=== PATIENT | male | born 1940 | race African-American/Black ===

== ENCOUNTER 2018-04-11 19:24 | Emergency (ER) | payer MEDICARE, OTHER ==
[~2018-04-11] VITALS: Ht 165.1 cm; Wt 81.6 kg
--- NOTE | 2018-04-11 19:50 | NUR ---
MD AT BEDSIDE FOR EVALUATION
--- NOTE | 2018-04-11 19:50 | NUR ---
PT NENA FROM [facility] COMPLAINING OF DECREASED URINARY OUTPUT. PT STATES LOVELACE CATHETER WAS PLACED EARLIER TODAY, ABOUT 200CC OUTPUT YELLOW, SLIGHTLY CLOUDY. PT AAOX1. RESPIRATIONS EVEN AND UNLABORED. NO ACUTE DISTRESS NOTED. WILL CONTINUE TO MONITOR
[2018-04-11] MEDS ORDERED: IV NS 0.9% 1,000 ML BAG IV ONE (20:00)
[2018-04-11 20:23] LABS: APPEARANCE,URINE Cloudy (CLEAR); BILIRUBIN,URINE Negative (NEGATIVE); BLOOD, URINE Moderate Ery/uL (NEGATIVE); COLOR,URINE Yellow (YELLOW); KETONES,URINE Negative (NEGATIVE); LEUKOCYTE ESTERASE ,URINE Large (NEGATIVE); NITRITE, URINE Positive (NEGATIVE); PROTEIN,URINE >=300 mg/dl (NEGATIVE); UGLUCOSE Negative (NEGATIVE); UROBILINOGEN,URINE 0.2 EU/dL (0.2)
--- NOTE | 2018-04-11 20:30 | NUR ---
OPERATION SUPERVISOR AT BEDSIDE FOR BLOOD DRAW
[2018-04-11 20:32] LABS: BACTERIA,URINE Many /HPF (None Seen); WBC,URINE TOO NUMEROUS TO COUN /HPF (0-3)
[2018-04-11 20:35] LABS: BASOPHILS % (AUTO) 0.5 % (0.0-2.0); EOSINOPHILS % (AUTO) 8.8 % (0.0-6.0); HEMATOCRIT 38 % (39-51); HEMOGLOBIN 12.2 g/dL (13.5-17.5); LYMPHOCYTES # (AUTO) 1.6 /CMM (0.8-4.8); MEAN CORPUSCULAR HGB CONC 32 g/dl (31.0-36.0); MEAN CORPUSCULAR VOLUME 101 fL (80-96); MONOCYTES % (AUTO) 16.3 % (2.0-12.0); NEUTROPHILS # (AUTO) 2.9 /CMM (1.8-8.9); NEUTROPHILS % (AUTO) 47.4 % (43.0-81.0); PLATELET COUNT (AUTO) 240 /CMM (150-450); RED BLOOD CELL COUNT(AUTO) 3.74 MIL/uL (4.5-6.0)
[2018-04-11 20:35] LABS: SQUAMOUS EPITHELIAL CELL,UR Rare /HPF (None Seen)
[2018-04-11 20:45] LABS: CALCIUM, SERUM 9.1 mg/dL (8.5-10.1); CARBON DIOXIDE 25 mmol/L (21-32); CHLORIDE 105 mmol/L (98-107); CREATININE 1.5 mg/dL (0.6-1.3); GLUCOSE 158 mg/dL (74-106); SODIUM SERUM 141 mmol/L (136-145); UREA NITROGEN, BLOOD 44 mg/dL (7-18)
[2018-04-11] MEDS ORDERED: CEFTRIAXONE 1GM BAG (ER ONLY) 50 ML IV ONE (21:22)
[2018-04-11] MEDS ORDERED: CEFTRIAXONE 1GM BAG (ER ONLY) 1 GM/50 ML PIGGYBACK IV ONE (21:30)
--- NOTE | 2018-04-11 23:44 | NUR ---
GAVE REPORT TO LILI FROM [facility] AND TO KAYLEE Suarez FOR JENNI
[2018-04-11 23:46] VITALS: BP 144/75
== END 2018-04-11 23:47 | disposition home or self-care (01) ==
LOC: ER 19:26
DX: N39.0 Urinary tract infection, site not specified (principal); E11.9 Type 2 diabetes mellitus without complications; I10 Essential (primary) hypertension; I42.9 Cardiomyopathy, unspecified; I25.10 Atherosclerotic heart disease of native coronary artery without angina pectoris; R09.02 Hypoxemia; K21.9 Gastro-esophageal reflux disease without esophagitis; M62.81 Muscle weakness (generalized); E78.00 Pure hypercholesterolemia, unspecified; Z89.612 Acquired absence of left leg above knee; Z89.611 Acquired absence of right leg above knee; Z88.0 Allergy status to penicillin; Z88.1 Allergy status to other antibiotic agents
CPT/HCPCS: 36415; 80048-TC; 81000-TC; 85025-TC; 87086-TC; 87186-TC; J0696; J7030

== ENCOUNTER 2020-08-12 23:07 | Inpatient (IN) | payer MEDICARE, OTHER ==
[~2020-08-12] VITALS: Ht 127 cm; Wt 76.2 kg
--- NOTE | 2020-08-12 23:24 | NUR ---
PT WAS BIB [facility] FOR EVALUATION OF ABNORMAL LAB INCLUDING HIGH WBS, LOW K+, AND HIGH BUN AND CR. PT ALERT AND RESPONSIVE , WSA PLACED IN BED 3 ER , ON MONITOR . NOTED W/ BILAT AKA AND DISTENDED ABDOMEN. PT DENIED ANY PAIN OR DISCOMFORT. DOES NOT REMEMBER WHEN THE LAST BM WAS, WILL CONT TO MONITOR AND WILL F/U WITH MD'S ORDERS
--- NOTE | 2020-08-12 23:50 | NUR ---
URINE COLLECTED AND SENT TO LAB
[2020-08-12 23:56] LABS: BILIRUBIN,URINE SMALL (NEGATIVE); COLOR,URINE YELLOW (YELLOW); LEUKOCYTE ESTERASE ,URINE Large (NEGATIVE); NITRITE, URINE Negative (NEGATIVE); PROTEIN,URINE 100 mg/dl (NEGATIVE); UGLUCOSE Negative (NEGATIVE); UROBILINOGEN,URINE 0.2 EU/dL (0.2)
--- NOTE | 2020-08-12 23:56 | NUR ---
PT WAS TAKEN TO CT
[2020-08-13 00:06] LABS: BASOPHILS % (AUTO) 0.1 % (0.0-2.0); EOSINOPHILS % (AUTO) 0.4 % (0.0-6.0); HEMATOCRIT 36 % (39-51); HEMOGLOBIN 11.5 g/dL (13.5-17.5); LYMPHOCYTES # (AUTO) 1.2 /CMM (0.8-4.8); LYMPHOCYTES % (AUTO) 5.2 % (20.0-44.0); MEAN CORPUSCULAR HGB CONC 32 g/dl (31.0-36.0); MEAN CORPUSCULAR VOLUME 103 fL (80-96); MONOCYTES # (AUTO) 1.1 /CMM (0.1-1.30); MONOCYTES % (AUTO) 4.8 % (2.0-12.0); NEUTROPHILS # (AUTO) 20.5 /CMM (1.8-8.9); NEUTROPHILS % (AUTO) 89.5 % (43.0-81.0); PLATELET COUNT (AUTO) 461 /CMM (150-450); RED BLOOD CELL COUNT(AUTO) 3.51 MIL/uL (4.5-6.0); WHITE BLOOD COUNT (AUTO) 22.9 K/uL (4.3-11.0)
[2020-08-13 00:07] LABS: CARBON DIOXIDE 20 mmol/L (21-32); CHLORIDE 109 mmol/L (98-107); CREATININE 2.9 mg/dL (0.6-1.3); GLUCOSE 160 mg/dL (74-106); SODIUM SERUM 143 mmol/L (136-145); UREA NITROGEN, BLOOD 62 mg/dL (7-18)
--- NOTE | 2020-08-13 00:07 | NUR ---
BACK FROM CT
[2020-08-13 00:21] LABS: ALANINE AMINOTRANSFERASE 9 U/L (12-78); ALBUMIN 2.3 g/dL (3.4-5.0); ALKALINE PHOSPHATASE 86 U/L (46-116); ASPARTATE AMINOTRANSFERASE 15 U/L (15-37); B-TYPE NATRIURETIC PEPTIDE 4977 PG/ML (0-125); BILIRUBIN,DIRECT 0.2 mg/dL (0.0-0.2); BILIRUBIN,TOTAL 0.8 mg/dL (0.2-1.0); TOTAL PROTEIN, SERUM 7.9 g/dL (6.4-8.2)
[2020-08-13 00:30] LABS: CALCIUM, SERUM 8.6 mg/dL (8.5-10.1)
[2020-08-13 00:33] LABS: BACTERIA,URINE Many /HPF (None Seen); SQUAMOUS EPITHELIAL CELL,UR Few /HPF (None Seen); WBC,URINE 81-100 /HPF (0-3)
[2020-08-13] MEDS ORDERED: CRAN3875 PO (00:42)
[2020-08-13] MEDS ORDERED: ASCO500C18 PO (00:42)
[2020-08-13] MEDS ORDERED: CLON0.1T PO (00:42)
[2020-08-13] MEDS ORDERED: ATOR40TA PO (00:42)
[2020-08-13] MEDS ORDERED: MULT-447 PO (00:42)
[2020-08-13] MEDS ORDERED: POLY500P23 PO (00:42)
[2020-08-13] MEDS ORDERED: CHOL100053 PO (00:42)
[2020-08-13] MEDS ORDERED: CLOP75TA15 PO (00:42)
[2020-08-13] MEDS ORDERED: CRAN425C6 PO (00:42)
[2020-08-13] MEDS ORDERED: FAMO20TA8 PO (00:42)
--- NOTE | 2020-08-13 00:51 | NUR ---
CALL FROM LAB. RAPID COVID NEGATIVE.
--- NOTE | 2020-08-13 01:44 | NUR ---
CALLED HOUSE SUP FOR TELE BED
[2020-08-13] MEDS ORDERED: VANCOMYCIN 1 GM VIAL ONE (01:45)
--- NOTE | 2020-08-13 01:55 | NUR ---
TELE 310-2
[2020-08-13] MEDS ORDERED: MAG HYDROX/AL HYDROX/SIMETH 30 ML UDC PO PRN (02:00)
[2020-08-13] MEDS ORDERED: HYDROCODONE/APAP 5/325MG TABLET PO PRN (02:00)
[2020-08-13] MEDS ORDERED: Z GUARD REMEDY 2 OZ OINT TP PRN (02:00)
[2020-08-13] MEDS ORDERED: IV NS 0.9% 1,000 ML BAG IV ONE ×2 (02:00)
[2020-08-13] MEDS ORDERED: VANCOMYCIN 1 GM in IV D5W 250 ML IV ONE (02:00)
[2020-08-13] MEDS ORDERED: LEVOFLOXACIN 750 MG /D5W 150ML 150 ML IV ONE (02:00)
[2020-08-13] MEDS ORDERED: ACETAMINOPHEN 325 MG TABLET PO PRN ×2 (02:00→09:30)
[2020-08-13] MEDS ORDERED: ZOLPIDEM TARTRATE 5 MG TABLET PO PRN (02:00)
[2020-08-13] MEDS ORDERED: MAGNESIUM HYDROXIDE 30 ML UDC PO PRN ×2 (02:00→09:30)
[2020-08-13] MEDS ORDERED: ONDANSETRON HCL/PF 4 MG/2 ML VIAL IVP PRN (02:00)
--- NOTE | 2020-08-13 03:05 | NUR ---
report recieved from moises vogel pt to be brought up to rm 310-2 telemetry dx of sepsis and yanique.
--- NOTE | 2020-08-13 03:30 | NUR ---
ADMISSION NOTE PATIENT FROM [facility] ADMITTED TO [facility] FROM ER WITH CHIEF COMPLAINT OF ABNORMAL LABS WBC 24.2, K 2.9, BUN 2.59 AND CR 1.65 . ADMITTED UNDER [facility]ANGUAGE [facility] FOR SEPSIS AND 2ND DX OF MARCELO. PT IS A/OX2 VS WNL. PATIENT PLACED ON LISA AIR MATTRESS. SKIN IS INTACT BUT SCAR TISSUE NOTED TO BE PRESENT ON SACRUM AND TESTICLES. PATIENT HAS BAKA. MEPILEX APPLIED TO SACRAL AREA PERINEAL CARE PERFORMED PATIENT HAD LARGE BM. PT HAS RAC #18 AND LEFT HAND #24 BOTH SITES FLUSEHD AND WORKING. NEW ORDERS RECIEVED. ADMISSION ASSESSMENT PERFORMED WITH PATIENT AND PRIOR RECORD FROM [facility].
--- NOTE | 2020-08-13 03:33 | NUR ---
PT WAS TRANSFERRED TO [facility] UNDER ACLS, RPORT GIVEN TO RODRIGO
[2020-08-13 04:00] VITALS: BP 130/73
[2020-08-13] MEDS: IV NS 0.9% 1,000 ML IV PRN ×2 (04:06→15:33)
[2020-08-13] MEDS: POTASSIUM CL. PREMIX PERIPHER. 50 ML IV SCH ×2 (04:09→05:00)
--- NOTE | 2020-08-13 05:00 | NUR ---
DISCUSSED CODE STATUS WITH PATIENT PATIENT WISHES TO BE FULL CODE. INFORMED PATIENT THAT THERE WAS A POLST FROM THE FACILITY THAT WAS DNR. PATIENT STATES, "NO I WANT ALL THE HELP I CAN GET. YOU CAN INTERVENE AND DO WHAT NEEDS TO BE DONE TO SAVE MY LIFE. "
[2020-08-13] MEDS ORDERED: INSU100V27 SQ (05:41)
--- NOTE | 2020-08-13 06:04 | NUR ---
PATIENT HAS HX OF DM; MED REC DID NOT INCLUDE INSULIN. GENE QUENCHING CAR OPERATOR; CONTACTED INFORMED NEW ORDERS FOR ACHS ACCUCHECKS ON LOW DOSE SLIDING SCALE RECIEVED. DIET ORDER CHANGED TO STANDARD CARB CONTROL DIET.
[2020-08-13] MEDS ORDERED: DEXTROSE 50%-WATER 50 ML DISP.SYRIN IV PRN (06:30)
[2020-08-13] MEDS: INSULIN REGULAR, HUMAN 100 UNIT/ML 3 ML VIAL SQ PRN ×3 (06:36→17:25)
--- NOTE | 2020-08-13 07:15 | NUR ---
EMPLOYEE OPERATIONS EXAMINER NOTES PATIENT IN BED ALERT ORIENTED X 3. NO ACUTE DISTRESS NOTED. BREATHING UNLABORED. NO SOB NOTED. IV ACCESS PATENT AND INTACT. ON GROUNDS RESTORATION SPECIALIST. SAFETY MEASURES IN PLACE. CALL LIGHT WITHIN REACH. WILL CONTINUE TO MONITOR ACCORDINGLY
[2020-08-13] MEDS: BLOOD SUGAR DIAGNOSTIC 1 EACH STRIP IN SCH ×4 (07:52→21:55)
[2020-08-13 08:00] VITALS: BP 142/54
[2020-08-13] MEDS ORDERED: BISA10SU11 RC (08:01)
[2020-08-13] MEDS ORDERED: ACET-2605 PO (08:01)
[2020-08-13] MEDS ORDERED: MAGN400O6 PO (08:01)
[2020-08-13] MEDS ORDERED: NA P133E RC (08:01)
[2020-08-13] MEDS ORDERED: ACET-868 PO (08:01)
[2020-08-13] MEDS: ASCORBIC ACID 500 MG TABLET PO SCH (08:11)
[2020-08-13] MEDS: CLOPIDOGREL BISULFATE 75 MG TABLET PO SCH (08:11)
[2020-08-13] MEDS: FAMOTIDINE (20 MG) 20 MG TABLET PO SCH (08:11)
[2020-08-13] MEDS: MULTIVIT W/MINERALS 1 TAB TABLET PO SCH (08:11)
[2020-08-13] MEDS: POLYETHYLENE GLYCOL 3350 17 GM POWD.PACK PO SCH (08:15)
[2020-08-13] MEDS ORDERED: BISACODYL SUPP (10 MG) 10 MG/SUPP.RECT SUPP.RECT RC PRN (09:30)
[2020-08-13] MEDS ORDERED: NA PHOS,M-B/NA PHOS,DI-BA 1 EA ENEMA RC PRN (09:30)
[2020-08-13] MEDS ORDERED: MINERAL OIL 133 ML (PYXIS) 1 EA ENEMA RC PRN (10:00)
--- NOTE | 2020-08-13 11:08 | NUR ---
VTE SCORE IS 4. NOTIFIED DR. MENARD. ORDER RECEIVED FOR HEPARIN 500U EVERY 12 HOURS. ORDER CLARIFIED AND READ BACK. NOTED AND CARRIED OUT. Addendum: 08/13/20 at 1920 by IAN CHAVES RN DISREGARD NOTE ABOVE-ERROR
--- NOTE | 2020-08-13 11:08 | NUR ---
VTE SCORE IS 4. NOTIFIED DR. MENARD. ORDER RECEIVED FOR HEPARIN 5000U EVERY 12 HOURS. ORDER CLARIFIED AND READ BACK. NOTED AND CARRIED OUT.
--- NOTE | 2020-08-13 11:08 | NUR ---
VTE SCORE IS 4. NOTIFIED DR. MENARD. ORDER RECEIVED FOR HEPARIN 500U EVERY 12 HOURS AND DVT PUMP. ORDERS CLARIFIED AND READ BACK. NOTED AND CARRIED OUT. Addendum: 08/13/20 at 1120 by IAN CHAVES RN DISREGARD ABOVE NOTE ERROR
[2020-08-13 16:00] VITALS: BP 118/68
--- NOTE | 2020-08-13 16:21 | NUR ---
SS Consult: Consult completed for Advanced Directive Eval. Per nurse, pt. has POLST from [facility] as DNR. However, pt. stated to his nurse that he would like to be Full Code. SW met with the pt. bedside. However, the pt. is confused at times. Pt. has Hx. of Dementia. Pt. gave SW verbal consent to speak to his daughter, Sherri. SW called pt.s daughter, Sherri Guallpa [phone] who confirmed that she is the DPOA and pt.s [employer] Directive is Full Code. Per Sherri, she will fax SW the [employer] Directive CELE. SW informed charge nurse & Patient has been listed as Full Code.
--- NOTE | 2020-08-13 19:00 | NUR ---
TIMEKEEPER NOTES PATIENT IN BED ALERT ORIENTED X 3. NO ACUTE DISTRESS NOTED. BREATHING UNLABORED. NO SOB NOTED. IV ACCESS PATENT AND INTACT, NO REDNESS, NO SWELLING NOTED. NEEDS ATTENDED AND ANTICIPATED. SAFETY MEASURES IN PLACE. CALL LIGHT WITHIN REACH. WILL ENDORSE TO NIGHT NURSE FOR CONTINUITY OF CARE.
--- NOTE | 2020-08-13 19:34 | NUR ---
BLEACHER LARD NOTES PATIENT WAS LAST SEEN AWAKE IN BED. PATIENT IS A/OX2 . PATIENT IS ON ROOM AIR AND IN NO RESPIRATORY DISTRESS. PATIENT HAS AN IV ACCESS ON HIS RIGHT AC G#18. ALL SAFETY PRECAUTIONS ARE KEPT IN PLACE. SIDE RAILS UP X3. BED IS LOCKED. CALL LIGHT IS WITHIN REACH. WILL CONTINUE TO MONITOR THE PATIENT. Addendum: 08/13/20 at 2013 by MERCY SHAW RN BLEACHER LARD OPENING NOTES
[2020-08-13 20:00] VITALS: BP 125/66
[2020-08-13] MEDS: ATORVASTATIN 40 MG TABLET PO SCH (21:20)
[2020-08-13] MEDS: HEPARIN SODIUM, PORCINE 5000 UNITS/1 ML VIAL SQ SCH (21:44)
--- NOTE | 2020-08-13 21:55 | NUR ---
SHEET METAL ROOFER NOTES PATIENT'S BLOOD SUGAR AT 2155 WAS 125 MG/DL. NO INSULIN WAS GIVEN. WILL CONTINUE TO MONITOR THE PATIENT.
[2020-08-14] VITALS: BP 137/67
[2020-08-14] MEDS ORDERED: VANCOMYCIN HCL 0.75 GM in IV D5W 250 ML IV SCH (02:00)
[2020-08-14] MEDS: VANCOMYCIN 500 MG in IV D5W 100ml IV SCH (02:36)
[2020-08-14] MEDS: IV NS 0.9% 1,000 ML IV PRN (02:46)
[2020-08-14 04:00] VITALS: BP 127/62
[2020-08-14 06:24] LABS: BASOPHILS % (AUTO) 0.1 % (0.0-2.0); EOSINOPHILS % (AUTO) 1.4 % (0.0-6.0); HEMATOCRIT 34 % (39-51); HEMOGLOBIN 10.8 g/dL (13.5-17.5); LYMPHOCYTES # (AUTO) 1.3 /CMM (0.8-4.8); LYMPHOCYTES % (AUTO) 9.6 % (20.0-44.0); MEAN CORPUSCULAR HGB CONC 32 g/dl (31.0-36.0); MEAN CORPUSCULAR VOLUME 104 fL (80-96); MONOCYTES # (AUTO) 0.8 /CMM (0.1-1.30); MONOCYTES % (AUTO) 6.1 % (2.0-12.0); NEUTROPHILS # (AUTO) 11.1 /CMM (1.8-8.9); NEUTROPHILS % (AUTO) 82.8 % (43.0-81.0); PLATELET COUNT (AUTO) 408 /CMM (150-450); RED BLOOD CELL COUNT(AUTO) 3.27 MIL/uL (4.5-6.0); WHITE BLOOD COUNT (AUTO) 13.4 K/uL (4.3-11.0)
[2020-08-14] MEDS: BLOOD SUGAR DIAGNOSTIC 1 EACH STRIP IN SCH ×4 (06:34→22:31)
[2020-08-14 06:46] LABS: CREATININE, URINE 46.8 MG/DL (30.0-125.0); URINE TOTAL PROTEIN 69.6 mg/dL (0-11.9)
[2020-08-14] MEDS: INSULIN REGULAR, HUMAN 100 UNIT/ML 3 ML VIAL SQ PRN ×4 (06:52→22:31)
[2020-08-14 06:59] LABS: BILIRUBIN,URINE NEGATIVE (NEGATIVE); COLOR,URINE YELLOW (YELLOW); LEUKOCYTE ESTERASE ,URINE MODERATE (NEGATIVE); NITRITE, URINE NEGATIVE (NEGATIVE); PROTEIN,URINE TRACE mg/dl (NEGATIVE); UGLUCOSE NEGATIVE (NEGATIVE); UROBILINOGEN,URINE 0.2 EU/dL (0.2)
[2020-08-14 06:59] LABS: ALANINE AMINOTRANSFERASE 10 U/L (12-78); ALBUMIN 2.1 g/dL (3.4-5.0); ALKALINE PHOSPHATASE 77 U/L (46-116); ASPARTATE AMINOTRANSFERASE 17 U/L (15-37); BILIRUBIN,TOTAL 0.6 mg/dL (0.2-1.0); CALCIUM, SERUM 8.6 mg/dL (8.5-10.1); CARBON DIOXIDE 17 mmol/L (21-32); CHLORIDE 114 mmol/L (98-107); CREATININE 2.1 mg/dL (0.6-1.3); GLUCOSE 135 mg/dL (74-106); MAGNESIUM 2.3 mg/dL (1.8-2.4); PHOSPHORUS 3.3 mg/dL (2.5-4.9); SODIUM SERUM 144 mmol/L (136-145); TOTAL PROTEIN, SERUM 7.2 g/dL (6.4-8.2); UREA NITROGEN, BLOOD 45 mg/dL (7-18)
[2020-08-14 07:03] LABS: CREATINE KINASE, TOTAL 42 U/L (39-308)
[2020-08-14 07:05] LABS: POTASSIUM 2.8 mmol/L (3.5-5.1)
--- NOTE | 2020-08-14 07:18 | NUR ---
BOX PRINTING MACHINE OPERATOR OPENING NOTES NOTES PATIENT IN BED ALERT ORIENTED X 2. BREATHING EVENLY AND UNLABORED ON ROOM AIR. NO SOB NOTED. NO ACUTE DISTRESS NOTED. IV ACCESS ON L HAND 24 GAUGE PATENT AND INTACT. ON TIME STUDY TECHNICIAN SHOWING SINUS SAMARA. PATIENT'S SKIN INTACT HAS SCAR ON SACRUM, NONAMBULATORY. SAFETY MEASURES IN PLACE, BED LOW LOCKED AND CALL LIGHT WITHIN REACH. WILL CONTINUE TO MONITOR
--- NOTE | 2020-08-14 07:28 | NUR ---
FERRIS WHEEL ATTENDANT CLOSING NOTES PATIENT WAS LAST SEEN AWAKE IN BED. PATIENT IS A/OX 1-2. PATIENT IS ON ROOM AIR AND IN NO RESPIRATORY DISTRESS. PATIENT HAS AN IV ACCESS ON HIS RIGHT AC G#18 WHICH IS INTACT AND PATENT..ALL SAFETY PRECAUTIONS ARE KEPT IN PLACE. SIDE RAILS. BED IS LOCKED. BED ALARM ON. PATIENT'S BLOOD SUGAR BEFORE BREAKFAST WAS 132 MG/DL. 2 UNITS OF REGULAR INSULIN WAS GIVEN. CALL LIGHT IS WITHIN REACH. ENDORSED CARE TO DAY SHIFT NURSE.
[2020-08-14 07:38] LABS: BACTERIA,URINE Moderate /HPF (None Seen); RBC,URINE 0-3 /HPF (0-2); SQUAMOUS EPITHELIAL CELL,UR Few /HPF (None Seen); WBC,URINE 51-80 /HPF (0-3)
--- NOTE | 2020-08-14 07:54 | NUR ---
RN NOTES MD AWARE OF POTASSIUM 2.8, ORDERS NOTED. WILL CONTINUE TO MONITOR
[2020-08-14] MEDS ORDERED: POTASSIUM CHLORIDE 20 MEQ TAB.PRT.SR PO ONE ×2 (08:00→19:00)
[2020-08-14] MEDS ORDERED: POTASSIUM CL. PREMIX PERIPHER. 50 ML IV SCH (08:00)
[2020-08-14] MEDS: MULTIVIT W/MINERALS 1 TAB TABLET PO SCH (08:19)
[2020-08-14] MEDS: FAMOTIDINE (20 MG) 20 MG TABLET PO SCH (08:19)
[2020-08-14] MEDS: ASCORBIC ACID 500 MG TABLET PO SCH (08:19)
[2020-08-14] MEDS: CLOPIDOGREL BISULFATE 75 MG TABLET PO SCH (08:19)
[2020-08-14] MEDS: POLYETHYLENE GLYCOL 3350 17 GM POWD.PACK PO SCH (08:19)
[2020-08-14] MEDS: HEPARIN SODIUM, PORCINE 5000 UNITS/1 ML VIAL SQ SCH ×2 (08:20→22:34)
[2020-08-14 08:57] LABS: EOSINOPHIL,URINE None Seen
[2020-08-14] MEDS: POTASSIUM CHLORIDE 20 MEQ TAB.PRT.SR PO SCH ×3 (09:11→11:07)
[2020-08-14 09:23] LABS: THYROID STIMULATING HORMONE 0.857 uIU/mL (0.358-3.74)
[2020-08-14 11:07] LABS: *SPE A/G RATIO 0.7 (0.7-1.7); *SPE ALBUMIN 2.6 g/dL (2.9-4.4); *SPE ALPHA-1-GLOBULIN 0.4 g/dL (0.0-0.4); *SPE M-SPIKE Not Observed g/dL (Not Observed); *SPEGAMMA GLOBULIN 1.7 g/dL (0.4-1.8)
--- NOTE | 2020-08-14 12:24 | NUR ---
ANTONELLA received [employer] Directive via fax from the pt.s daughter, Sherri Guallpa [phone]. ANTONELLA placed it in the pt.'s chart for MD to review. ANTONELLA discussed with charge nurse, Emily.
--- NOTE | 2020-08-14 17:44 | NUR ---
RN NOTES RECEIVED A CALL FROM LABORATORY IN REGARDS TO POTASSIUM LEVEL. PATIENTS LEVEL IS 2.6. MD NOTIFIED.
--- NOTE | 2020-08-14 18:47 | NUR ---
RN NOTES DR. MENARD CALLED BACK W/ ORDERS NOTED: KCL 40MEQ PO X1 AND KCL 40MEQ IV X1. WILL CONTINUE TO MONITOR.
--- NOTE | 2020-08-14 18:48 | NUR ---
MS RN CLOSING NOTE PATIENT IN BED ALERT ORIENTED X 2. BREATHING EVENLY AND UNLABORED ON ROOM AIR. NO SOB NOTED. NO ACUTE DISTRESS NOTED. IV ACCESS ON L HAND 24 GAUGE AND RAC # 18 GAUGE PATENT AND INTACT . ON CYBER OPERATOR SHOWING SINUS SAMARA. PATIENT'S SKIN INTACT HAS SCAR ON SACRUM, NONAMBULATORY. PATIENT'S MEDICATIONS WERE GIVEN ORDERED. PAGED DR STEEN TO CRITICAL LAB, NEW ORDERS NOTED AND CARRIED OUT. SAFETY MEASURES IN PLACE, BED LOW LOCKED AND CALL LIGHT WITHIN REACH. WILL ENDORSE TO ONCOMING SHIFT
[2020-08-14] MEDS ORDERED: POTASSIUM CHLORIDE 10 MEQ/50 ML PREMIXED IVPB FOR PERIPHERAL LINE IV ONE (19:00)
[2020-08-14 20:00] VITALS: BP 124/65
[2020-08-14] MEDS: POTASSIUM CL. PREMIX PERIPHER. 50 ML IV SCH ×3 (20:00→23:41)
[2020-08-14] MEDS: ATORVASTATIN 40 MG TABLET PO SCH (22:33)
[2020-08-14 23:59] VITALS: BP 117/59
[2020-08-15] MEDS: POTASSIUM CL. PREMIX PERIPHER. 50 ML IV SCH (00:50)
[2020-08-15] MEDS: LEVOFLOXACIN 500 MG /D5W 100ML 500 MG in PREMIX 1 EA IV SCH (01:15)
[2020-08-15] MEDS: IV NS 0.9% 1,000 ML IV PRN ×2 (02:29→16:36)
[2020-08-15] MEDS: VANCOMYCIN 500 MG in IV D5W 100ml IV SCH (02:30)
[2020-08-15 04:00] VITALS: BP 108/64
[2020-08-15 06:11] LABS: BASOPHILS % (AUTO) 0.3 % (0.0-2.0); EOSINOPHILS % (AUTO) 1.6 % (0.0-6.0); HEMATOCRIT 34 % (39-51); HEMOGLOBIN 10.7 g/dL (13.5-17.5); LYMPHOCYTES # (AUTO) 1.3 /CMM (0.8-4.8); LYMPHOCYTES % (AUTO) 14.3 % (20.0-44.0); MEAN CORPUSCULAR HGB CONC 32 g/dl (31.0-36.0); MEAN CORPUSCULAR VOLUME 106 fL (80-96); MONOCYTES # (AUTO) 0.7 /CMM (0.1-1.30); MONOCYTES % (AUTO) 8.4 % (2.0-12.0); NEUTROPHILS # (AUTO) 6.7 /CMM (1.8-8.9); NEUTROPHILS % (AUTO) 75.4 % (43.0-81.0); PLATELET COUNT (AUTO) 370 /CMM (150-450); RED BLOOD CELL COUNT(AUTO) 3.18 MIL/uL (4.5-6.0); WHITE BLOOD COUNT (AUTO) 8.8 K/uL (4.3-11.0)
[2020-08-15] MEDS: BLOOD SUGAR DIAGNOSTIC 1 EACH STRIP IN SCH ×4 (06:24→21:44)
[2020-08-15] MEDS: INSULIN REGULAR, HUMAN 100 UNIT/ML 3 ML VIAL SQ PRN ×4 (06:25→21:56)
--- NOTE | 2020-08-15 06:45 | NUR ---
RN PM CLOSING NOTE PATIENT IN ROOM. A/OX2. PATIENT REORIENTED TO PLACE AND POC. PT RHYTHM IS SR TO SB WITH PVC AND OCCASIONAL PVC. PT DENIES PAIN. PT RESP EVEN AND UNLABORED. PT HAD TWO SOFT BMS LAST NIGHT. BED DOWN LOCKED SR X3 CALL LIGHT WITHIN REACH.
--- NOTE | 2020-08-15 07:20 | NUR ---
MS RN OPENING NOTES RECEIVED PATIENT AWAKE ON BED AT THIS TIME. PATIENT ALERT, COHERENT AND ORIENTED X 2 BUT FORGETFUL. PATIENT ON ROOM AIR, NO SIGNS OF DISTRESS NOTED. NO COMPLAINT OF PAIN. PATIENT WIN IV ACCESS ON LEFT HAND G#24, INTACT, PATENT AND FLUSHING WELL. PATIENT WITH ANOTHER PERIPHERAL IV ACCESS ON HIS RIGHT AC G#18 WITH IV FLUID RUNNING PNSS X90ML/HR, INFUSING WELL. SAFETY PRECAUTIONS IN PLACE AND MAINTAINED AT ALL TIMES. BED IN LOWEST LOCKED POSITION. ON MODERATE TO HIGH BACK REST. SAFETY PRECAUTIONS IN PLACE AND MAINTAINED AT ALL TIMES. CALL LIGHT AND TABLE WITHIN REACH AT ALL TIMES. WILL CONTINUE TO MONITOR PATIENT.
[2020-08-15 07:47] LABS: CALCIUM, SERUM 8.5 mg/dL (8.5-10.1); CARBON DIOXIDE 14 mmol/L (21-32); CHLORIDE 114 mmol/L (98-107); CREATININE 1.7 mg/dL (0.6-1.3); GLUCOSE 174 mg/dL (74-106); MAGNESIUM 2.4 mg/dL (1.8-2.4); PHOSPHORUS 3.1 mg/dL (2.5-4.9); POTASSIUM 3.7 mmol/L (3.5-5.1); SODIUM SERUM 144 mmol/L (136-145); UREA NITROGEN, BLOOD 37 mg/dL (7-18)
[2020-08-15 08:00] VITALS: BP 116/67
[2020-08-15] MEDS: POLYETHYLENE GLYCOL 3350 17 GM POWD.PACK PO SCH (08:29)
[2020-08-15] MEDS: FAMOTIDINE (20 MG) 20 MG TABLET PO SCH (08:30)
[2020-08-15] MEDS: CLOPIDOGREL BISULFATE 75 MG TABLET PO SCH (08:30)
[2020-08-15] MEDS: MULTIVIT W/MINERALS 1 TAB TABLET PO SCH (08:30)
[2020-08-15] MEDS: ASCORBIC ACID 500 MG TABLET PO SCH (08:30)
[2020-08-15] MEDS: HEPARIN SODIUM, PORCINE 5000 UNITS/1 ML VIAL SQ SCH ×2 (08:42→21:14)
[2020-08-15 08:57] LABS: BAND % (MANUAL) 2 % (0.0-5.0); EOSINOPHILS % (MANUAL) 2 % (0-4); LYMPHOCYTES % (MANUAL) 13 % (16-48); MONOCYTES % (MANUAL) 4 % (0-11.0); NEUTROPHILS % (MANUAL) 79 (42-76)
[2020-08-15 16:00] VITALS: BP 104/66
--- NOTE | 2020-08-15 18:30 | NUR ---
MS RN CLOSING NOTE PT AWAKE IN BED AT THIS TIME. PT REMAINED STABLE THROUGHOUT SHIFT. ALL CARE, NEEDS, TREATMENT AND MEDICATIONS ADMINISTERED ANTICIPATED PER ORDER. PT KEPT CLEAN AND DRY. SAFETY PRECAUTIONS IN PLACE AND MAINTAINED AT ALL TIMES. BED IN LOWEST LOCKED POSITION, HOB ELEVATED, SIDE RAILS UP X 2. CALL LIGHT AND TABLE WITHIN REACH. WILL ENDORSE TO FILM MASKER NURSE FOR CONTINUITY OF CARE.
--- NOTE | 2020-08-15 19:41 | NUR ---
MS RN NOTES PATIENT IN BED WITH EYES CLOSED. L. HAND IV RUNNING NS @ 90 ML/HR. NO S/S OF DISTRESS. NO C/O OF PAIN AT THE MOMENT. SAFETY IN PLACE: BED IN LOWEST, LOCKED POSITION; CALL LIGHT WITHIN REACH. BOARD UPDATED. WILL CONTINUE TO MONITOR.
[2020-08-15 20:00] VITALS: BP 116/63
[2020-08-15 21:01] VITALS: BP 116/63
[2020-08-15] MEDS: ATORVASTATIN 40 MG TABLET PO SCH (21:13)
--- NOTE | 2020-08-15 22:03 | NUR ---
MS RN NOTES BS 136. GIVEN 2 UNITS REGULAR INSULIN PER SLIDING SCALE. PATIENT C/O BEING HUNGRY. GIVEN HALF A CUP OF MILK. TOLERATED WELL. WILL CONTINUE TO MONITOR.
[2020-08-16] MEDS: VANCOMYCIN 500 MG in IV D5W 100ml IV SCH (01:47)
[2020-08-16 06:35] LABS: BASOPHILS % (AUTO) 0.5 % (0.0-2.0); EOSINOPHILS % (AUTO) 1.6 % (0.0-6.0); HEMATOCRIT 34 % (39-51); HEMOGLOBIN 10.9 g/dL (13.5-17.5); LYMPHOCYTES # (AUTO) 1.8 /CMM (0.8-4.8); LYMPHOCYTES % (AUTO) 23.4 % (20.0-44.0); MEAN CORPUSCULAR HGB CONC 32 g/dl (31.0-36.0); MEAN CORPUSCULAR VOLUME 105 fL (80-96); MONOCYTES # (AUTO) 0.8 /CMM (0.1-1.30); MONOCYTES % (AUTO) 10.7 % (2.0-12.0); NEUTROPHILS % (AUTO) 63.8 % (43.0-81.0); PLATELET COUNT (AUTO) 378 /CMM (150-450); RED BLOOD CELL COUNT(AUTO) 3.26 MIL/uL (4.5-6.0); WHITE BLOOD COUNT (AUTO) 7.8 K/uL (4.3-11.0)
--- NOTE | 2020-08-16 07:02 | NUR ---
RN CLOSING NOTES PATIENT IN BED WITH EYES CLOSED. PATIENT ABLE TO MAKE NEEDS KNOWN. ALL NEEDS ATTENDED. ALL SCHEDULED MEDS ADMINISTERED. NO S/S OF DISTRESS. NO C/O OF PAIN AT THE MOMENT. L. HAND IV RUNNING NS @90 ML/HR. PATIENT TOLERATING PO MEDS WELL. BILATERAL ABOVE THE KNEE AMPUTATION NOTED. SAFETY KEPT IN PLACE THE WHOLE TIME: BED IN LOWEST, LOCKED POSITION; CALL LIGHT WITHIN REACH. NO SIGNIFICANT CHANGE SINCE LAST SHIFT. WILL ENDORSE CARE TO MORNING SHIFT NURSE.
[2020-08-16 07:05] LABS: CALCIUM, SERUM 8.3 mg/dL (8.5-10.1); CARBON DIOXIDE 17 mmol/L (21-32); CHLORIDE 116 mmol/L (98-107); CREATININE 1.7 mg/dL (0.6-1.3); GLUCOSE 104 mg/dL (74-106); MAGNESIUM 2.2 mg/dL (1.8-2.4); PHOSPHORUS 3.3 mg/dL (2.5-4.9); SODIUM SERUM 146 mmol/L (136-145); UREA NITROGEN, BLOOD 28 mg/dL (7-18)
[2020-08-16 07:08] LABS: POTASSIUM 2.8 mmol/L (3.5-5.1)
--- NOTE | 2020-08-16 07:27 | NUR ---
ms rn notes lab called for potassium level 2.8 while we were in the huddle. I stopped the IV NS. endorsed potassium level to DOMENICO Rucker.
[2020-08-16] MEDS: BLOOD SUGAR DIAGNOSTIC 1 EACH STRIP IN SCH ×4 (07:41→22:23)
[2020-08-16 08:00] VITALS: BP 129/76
[2020-08-16] MEDS ORDERED: POTASSIUM CHLORIDE 20 MEQ TAB.PRT.SR PO ONE ×2 (08:00→11:00)
--- NOTE | 2020-08-16 08:04 | NUR ---
MS RN OPENING NOTES RECEIVED PATIENT IN BED, AWAKE. A/O X3, FORGETFUL AT TIMES. PATIENT ON ROOM AIR - TOLERATING WELL, NO SOB NOTED. NO PAIN OR DISTRESS NOTED AT THIS TIME. IV ACCESS TO LEFT HAND #24 - INTACT & PATENT. IV ACCESS TO RIGHT AC #18 - INTACT AND PATENT. SAFETY PRECAUTIONS IN PLACE. BED IN LOWEST LOCKED POSITION, SEMI FOWLERS. CALL LIGHT WITHIN REACH. WILL CONTINUE TO MONITOR.
[2020-08-16] MEDS: MULTIVIT W/MINERALS 1 TAB TABLET PO SCH (08:41)
[2020-08-16] MEDS: ASCORBIC ACID 500 MG TABLET PO SCH (08:41)
[2020-08-16] MEDS: POLYETHYLENE GLYCOL 3350 17 GM POWD.PACK PO SCH (08:41)
[2020-08-16] MEDS: CLOPIDOGREL BISULFATE 75 MG TABLET PO SCH (08:41)
[2020-08-16] MEDS: FAMOTIDINE (20 MG) 20 MG TABLET PO SCH (08:41)
[2020-08-16] MEDS: HEPARIN SODIUM, PORCINE 5000 UNITS/1 ML VIAL SQ SCH ×2 (08:49→20:49)
[2020-08-16] MEDS ORDERED: POTASSIUM CL. PREMIX PERIPHER. 50 ML IV SCH (09:00)
[2020-08-16 16:00] VITALS: BP 132/73
[2020-08-16] MEDS: CHOLECALCIFEROL 1,000 UNIT TABLET (VIT D3) PO SCH (16:12)
[2020-08-16] MEDS: INSULIN REGULAR, HUMAN 100 UNIT/ML 3 ML VIAL SQ PRN ×2 (17:06→22:31)
--- NOTE | 2020-08-16 18:26 | NUR ---
MS RN CLOSING NOTES PATIENT CURRENTLY LYING IN BED, AWAKE, WATCHING TV. A/O X3, FORGETFUL/SLOW TO RESPOND AT TIMES. PATIENT ON ROOM AIR - TOLERATING WELL, NO SOB NOTED. NO PAIN OR DISTRESS NOTED AT THIS TIME. IV ACCESS TO LEFT HAND #24 - INTACT & PATENT, NO FLUIDS RUNNING. SAFETY PRECAUTIONS IN PLACE. BED IN LOWEST LOCKED POSITION, SEMI FOWLERS. CALL LIGHT WITHIN REACH. WILL ENDORSE TO PUBLIC RELATIONS STUDIES DIRECTOR FOR JENNI.
[2020-08-16 20:00] VITALS: BP 104/60
--- NOTE | 2020-08-16 20:00 | NUR ---
MS RN OPENING NOTE RECEIVED PT AWAKE IN BED. A/O X3, FORGETFUL AT TIMES. PT IS STABLE ON ROOM AIR. NO SOB NOTED. NO S/S OF RESPIRATORY DISTRESS. PT HAS NO C/O PAIN AT THIS TIME. IV ACCESS IN LEFT HAND #24, INTACT & PATENT. IV ACCESS NOTED IN RAC #18, INTACT AND PATENT. SAFETY MEASURES MAINTAINED. BED IN LOWEST LOCKED POSITION, HOB ELEVATED, SIDE RAILS UP X2. CALL LIGHT AND TABLE WITHIN REACH. WILL CONTINUE WITH PLAN OF CARE.
[2020-08-16] MEDS: ATORVASTATIN 40 MG TABLET PO SCH (22:01)
--- NOTE | 2020-08-16 22:23 | NUR ---
BS NOTED AT 172. 3 UNITS OF REGULAR INSULIN GIVEN PER SLIDING SCALE.
[2020-08-17] MEDS: LEVOFLOXACIN 500 MG /D5W 100ML 500 MG in PREMIX 1 EA IV SCH (02:11)
[2020-08-17 06:29] LABS: BASOPHILS % (AUTO) 0.5 % (0.0-2.0); EOSINOPHILS % (AUTO) 2.1 % (0.0-6.0); HEMATOCRIT 33 % (39-51); HEMOGLOBIN 10.4 g/dL (13.5-17.5); LYMPHOCYTES # (AUTO) 1.5 /CMM (0.8-4.8); LYMPHOCYTES % (AUTO) 21.1 % (20.0-44.0); MEAN CORPUSCULAR HGB CONC 32 g/dl (31.0-36.0); MEAN CORPUSCULAR VOLUME 106 fL (80-96); MONOCYTES # (AUTO) 0.7 /CMM (0.1-1.30); MONOCYTES % (AUTO) 10.4 % (2.0-12.0); NEUTROPHILS # (AUTO) 4.6 /CMM (1.8-8.9); NEUTROPHILS % (AUTO) 65.9 % (43.0-81.0); PLATELET COUNT (AUTO) 357 /CMM (150-450); RED BLOOD CELL COUNT(AUTO) 3.07 MIL/uL (4.5-6.0)
[2020-08-17] MEDS: BLOOD SUGAR DIAGNOSTIC 1 EACH STRIP IN SCH ×2 (06:42→11:39)
--- NOTE | 2020-08-17 06:42 | NUR ---
BS NOTED AT 102. NO INSULIN COVERAGE GIVEN.
[2020-08-17 06:46] LABS: ALANINE AMINOTRANSFERASE 10 U/L (12-78); ALKALINE PHOSPHATASE 71 U/L (46-116); ASPARTATE AMINOTRANSFERASE 20 U/L (15-37); BILIRUBIN,TOTAL 0.3 mg/dL (0.2-1.0); CALCIUM, SERUM 8.4 mg/dL (8.5-10.1); CARBON DIOXIDE 19 mmol/L (21-32); CHLORIDE 116 mmol/L (98-107); CREATININE 1.7 mg/dL (0.6-1.3); GLUCOSE 122 mg/dL (74-106); MAGNESIUM 2.1 mg/dL (1.8-2.4); PHOSPHORUS 2.9 mg/dL (2.5-4.9); POTASSIUM 3.5 mmol/L (3.5-5.1); SODIUM SERUM 143 mmol/L (136-145); TOTAL PROTEIN, SERUM 6.5 g/dL (6.4-8.2); UREA NITROGEN, BLOOD 26 mg/dL (7-18)
--- NOTE | 2020-08-17 06:46 | NUR ---
MS RN CLOSING NOTE PT IS AWAKE IN BED AT THIS TIME. A/O X3, FORGETFUL AT TIMES. PT IS STABLE ON ROOM AIR. NO SOB NOTED. NO S/S OF RESPIRATORY DISTRESS. IV ACCESS IS INTACT, PATENT, AND FLUSHING WELL. ALL NEEDS HAVE BEEN MET. SAFETY AND ASPIRATION PRECAUTIONS MAINTAINED AT ALL TIMES. BED IN LOWEST LOCKED POSITION, HOB ELEVATED, SIDE RAILS UP X2. CALL LIGHT AND TABLE WITHIN REACH. WILL ENDORSE TO ONCOMING NURSE FOR CONTINUITY OF CARE.
[2020-08-17 08:00] VITALS: BP 110/69
--- NOTE | 2020-08-17 08:00 | NUR ---
RN OPENING NOTE RECEIVED PATIENT IN BED, AO X2-3, ABLE TO RESPONDS ALL STIMULI. NO DISTRESS OR DISCOMFORT OBSERVED. SKIN IS WARM TO TOUCH, KEEP CLEAN/DRY, INTACT IV SITE. RESPIRATORY EVEN AND UNLABORED ON ROOM AIR. KEPT ELEVATED HOB FOR ENSURE AIRWAY AND ASPIRATION PRECAUTION, ALSO LOWEST BED POSITION AND BED ALARM IS ON AT ALL THE TIMES FOR SAFETY. CALL LIGHT WITHIN REACH, WILL CONTINUE TO MONITOR.
[2020-08-17] MEDS: CHOLECALCIFEROL 1,000 UNIT TABLET (VIT D3) PO SCH (08:55)
[2020-08-17] MEDS: ASCORBIC ACID 500 MG TABLET PO SCH (08:55)
[2020-08-17] MEDS: CLOPIDOGREL BISULFATE 75 MG TABLET PO SCH (08:55)
[2020-08-17] MEDS: MULTIVIT W/MINERALS 1 TAB TABLET PO SCH (08:55)
[2020-08-17] MEDS: FAMOTIDINE (20 MG) 20 MG TABLET PO SCH (08:55)
[2020-08-17] MEDS: POLYETHYLENE GLYCOL 3350 17 GM POWD.PACK PO SCH (08:55)
[2020-08-17] MEDS: HEPARIN SODIUM, PORCINE 5000 UNITS/1 ML VIAL SQ SCH (08:57)
[2020-08-17] MEDS ORDERED: CALCIUM CARB 600MG /VIT D 1 EACH TABLET PO SCH (09:00)
[2020-08-17] MEDS ORDERED: LEVO500T90 PO (09:30)
[2020-08-17] MEDS ORDERED: Calcium Carb 600MG /Vit D PO (09:30)
[2020-08-17] MEDS ORDERED: POTASSIUM CHLORIDE 20 MEQ TAB.PRT.SR PO ONE (10:00)
[2020-08-17] MEDS: INSULIN REGULAR, HUMAN 100 UNIT/ML 3 ML VIAL SQ PRN (11:40)
--- NOTE | 2020-08-17 12:32 | NUR ---
PATIENT D/C TO [facility], GIVEN REPORT SHAW RN INCLUDE NEW MEDICATIONS, DOSAGE AND FREQUENCY.
--- NOTE | 2020-08-17 14:00 | NUR ---
2 registered nurse fetal PICKED UP PATIENT, GIVEN REPORT. PATIENT N STABLE CONDITION.
== END 2020-08-17 14:10 | DRG 871 ==
LOC: ER 23:09 → TELE 08-13 01:57 → MED 08-15 09:22
PROVIDERS: ADMIT Internal Medicine; ATTEND Internal Medicine
DX: A41.9 Sepsis, unspecified organism (principal); E43 Unspecified severe protein-calorie malnutrition; G93.41 Metabolic encephalopathy; I21.A1 Myocardial infarction type 2; N17.0 Acute kidney failure with tubular necrosis; N39.0 Urinary tract infection, site not specified; E87.0 Hyperosmolality and hypernatremia; E87.2 Acidosis; Z16.12 Extended spectrum beta lactamase (ESBL) resistance; F03.90 Unspecified dementia, unspecified severity, without behavioral disturbance, psychotic disturbance, mood disturbance, and anxiety; F32.9 Major depressive disorder, single episode, unspecified; I12.9 Hypertensive chronic kidney disease with stage 1 through stage 4 chronic kidney disease, or unspecified chronic kidney disease; N18.9 Chronic kidney disease, unspecified; D64.9 Anemia, unspecified; E11.22 Type 2 diabetes mellitus with diabetic chronic kidney disease; E78.5 Hyperlipidemia, unspecified; E87.6 Hypokalemia; I25.10 Atherosclerotic heart disease of native coronary artery without angina pectoris; E88.09 Other disorders of plasma-protein metabolism, not elsewhere classified; E11.51 Type 2 diabetes mellitus with diabetic peripheral angiopathy without gangrene; N20.0 Calculus of kidney; N28.1 Cyst of kidney, acquired; Z79.4 Long term (current) use of insulin; Z89.512 Acquired absence of left leg below knee; Z89.511 Acquired absence of right leg below knee; M89.9 Disorder of bone, unspecified; E21.1 Secondary hyperparathyroidism, not elsewhere classified; B96.20 Unspecified Escherichia coli [E. coli] as the cause of diseases classified elsewhere; B95.1 Streptococcus, group B, as the cause of diseases classified elsewhere; Z20.822 Contact with and (suspected) exposure to COVID-19
CPT/HCPCS: 36415; 71045-TC; 80048-TC; 80053-TC; 80061-TC; 80076-TC; 80202-TC; 81001; 82436-TC; 82550-TC; 82570-TC; 82728-TC; 82962-TC; 83540-TC; 83605-TC; 83735-TC; 83880; 83970; 84100-TC; 84132-TC; 84133-TC; 84155; 84155-TC; 84165; 84300-TC; 84439-TC; 84443-TC; 84484-TC; 85025-TC; 85730-TC; 87040-TC; 87081-TC; 87086-TC; 87186-TC; 92521; 92526; 93307-TC; A4216; C9803; G0378; J1644; J1815; J1956; J3370; J3480; J7030; J7040; J7060